=== PATIENT | female | born 1985 | race Caucasian/White ===

== ENCOUNTER 2019-02-26 18:20 | Observation (INO) | payer OTHER ==
[~2019-02-26] VITALS: Ht 170.2 cm; Wt 99.3 kg
[2019-02-26] MEDS ORDERED: PREN1TAB26 PO (18:51)
[2019-02-26 18:53] VITALS: BP 107/62
== END 2019-02-26 19:35 | disposition home or self-care (01) ==
LOC: 4S 18:20
PROVIDERS: ADMIT Obstetrics & Gynecology; ATTEND Obstetrics & Gynecology
DX: O24.419 Gestational diabetes mellitus in pregnancy, unspecified control (principal); Z3A.38 38 weeks gestation of pregnancy
CPT/HCPCS: 36415; 81002; 82947; 83036; G0378

== ENCOUNTER 2019-03-04 08:50 | Observation (INO) | payer OTHER ==
[~2019-03-04] VITALS: Ht 170 cm; Wt 99.3 kg
[~2019-03-04 08:50] MED LIST: PREN1TAB26 PO
[2019-03-04 09:37] VITALS: BP 101/61
[2019-03-10] MEDS ORDERED: IBUP-2070 PO (08:49)
[2019-03-10] MEDS ORDERED: DSS100 PO (08:50)
[2019-03-10] MEDS ORDERED: ACET-2247 PO (08:52)
[2019-03-10] MEDS ORDERED: PERCT PO (08:53)
== END 2019-03-04 10:20 | disposition home or self-care (01) ==
LOC: 4S 08:50
PROVIDERS: ADMIT Obstetrics & Gynecology; ATTEND Obstetrics & Gynecology
DX: O24.419 Gestational diabetes mellitus in pregnancy, unspecified control (principal); Z3A.39 39 weeks gestation of pregnancy
CPT/HCPCS: 81002; G0378

== ENCOUNTER 2020-08-07 18:32 | Observation (INO) | payer OTHER ==
[~2020-08-07 18:32] MED LIST changes: +ACET-2865 PO; +DSS100 PO; +IBUP-2070 PO; +PERCT PO
[2020-08-07 19:48] VITALS: BP 106/57
[2020-08-07 23:40] LABS: COVID AG,FIA SOURCE NASOPHARYNGEAL
[2020-08-17] MEDS ORDERED: PREN-217 PO (09:11)
== END 2020-08-08 07:15 | disposition home or self-care (01) ==
LOC: 4S 19:16
PROVIDERS: ADMIT Obstetrics & Gynecology; ATTEND Obstetrics & Gynecology
DX: O09.523 Supervision of elderly multigravida, third trimester (principal); Z20.822 Contact with and (suspected) exposure to COVID-19; Z3A.37 37 weeks gestation of pregnancy
CPT/HCPCS: 59025; 76811; 83036; 87426; 99219

== ENCOUNTER 2020-08-16 11:05 | Observation (INO) | payer OTHER ==
[~2020-08-16 11:05] MED LIST changes: -ACET-2865 PO; -DSS100 PO; -IBUP-2070 PO; -PERCT PO
[2020-08-16 12:32] LABS: COVID AG,FIA SOURCE NASOPHARYNGEAL
[2020-08-17] MEDS ORDERED: PREN-217 PO (09:11)
== END 2020-08-16 11:10 | disposition home or self-care (01) ==
LOC: 4S 11:05
PROVIDERS: ADMIT Obstetrics & Gynecology; ATTEND Obstetrics & Gynecology
DX: Z34.93 Encounter for supervision of normal pregnancy, unspecified, third trimester (principal); Z20.822 Contact with and (suspected) exposure to COVID-19
CPT/HCPCS: 87426; 99219

== ENCOUNTER 2020-08-17 09:11 | Inpatient (IN) | payer OTHER ==
[~2020-08-17] VITALS: Ht 170.2 cm; Wt 94.3 kg
[~2020-08-17 09:11] MED LIST changes: +PREN-217 PO
[2020-08-17] MEDS ORDERED: CITRIC ACID/SODIUM CITRATE 30 ML SOLUTION UDCUP PO ONE (09:15)
[2020-08-17] MEDS ORDERED: METOCLOPRAMIDE HCL 5 MG/ML 2 ML VIAL IVP ONE (09:15)
[2020-08-17] MEDS ORDERED: RINGERS SOLUTION,LACTATED 1,000 ML IV ONE ×2 (09:15→10:39)
[2020-08-17] MEDS ORDERED: METHYLERGONOVINE MALEATE 0.2 MG/ML VIAL IM ONE (09:15)
[2020-08-17 09:20] VITALS: BP 103/70
[2020-08-17] MEDS ORDERED: BUPIVACAINE HCL/DEX-WATER/PF 0.75% 2 ML AMP ITH ONE (10:39)
[2020-08-17] MEDS ORDERED: SODIUM CHLORIDE 0.9% 1,000 ML ONE (10:39)
[2020-08-17 11:11] LABS: BASOPHILS % (AUTO) 0.3 % (0.0-2.0); EOSINOPHILS % (AUTO) 1.5 % (1.0-6.0); HEMATOCRIT 33.2 % (36-46); HEMOGLOBIN 11.1 g/dL (12.0-16.0); LYMPHOCYTES % (AUTO) 22.9 % (22.0-44.0); MEAN CORPUSCULAR HEMOGLOBIN 29.2 pg (26.0-34.0); MEAN CORPUSCULAR HGB CONC 33.3 G/dL (31.0-37.0); MEAN CORPUSCULAR VOLUME 88 fL (80-100); MONOCYTES # (AUTO) 0.8 K/uL (0.1-1.0); MONOCYTES % (AUTO) 8.6 % (2.0-9.0); NEUTROPHILS # (AUTO) 5.8 K/uL (1.8-7.7); NEUTROPHILS % (AUTO) 66.7 % (40.0-70.0); PLATELET COUNT (AUTO) 293 K/uL (150-450); RED BLOOD CELL COUNT(AUTO) 3.79 MIL/uL (4.00-5.20); RED CELL DISTRIBUTION WIDTH 14.9 % (11.5-14.5)
[2020-08-17] MEDS ORDERED: GUM MASTIC/STORAX/MSAL/ALCOHOL LIQUID 0.67 ML VIAL TP ONE (11:38)
[2020-08-17] MEDS ORDERED: FentaNYL CITRATE PF 100 MCG/2 ML VIAL IVP PRN ×2 (12:15→13:30)
[2020-08-17] MEDS ORDERED: DiphenhydrAMINE HCL 50 MG/ML VIAL IVP PRN (12:15)
[2020-08-17] MEDS ORDERED: NALBUPHINE HCL 10 MG/ML VIAL IVP PRN ×2 (12:15→13:30)
[2020-08-17] MEDS ORDERED: MEPERIDINE-PF 25 MG/ML VIAL IVP PRN (12:15)
[2020-08-17] MEDS ORDERED: HYDROmorphone 2 MG/ML VIAL IVP PRN (12:15)
[2020-08-17] MEDS ORDERED: OxyCODONE HCL/ACETAMINOPHEN 5-325 MG TABLET PO PRN (12:45)
[2020-08-17] MEDS ORDERED: OXYTOCIN 30 UNITS/LACT RINGERS 500 ML IV ONE (12:45)
[2020-08-17] MEDS ORDERED: LANOLIN 7 GM OINTMENT TP PRN (12:45)
[2020-08-17] MEDS ORDERED: KETOROLAC TROMETHAMINE 30 MG/ML VIAL IVP SCH (13:30)
[2020-08-17] MEDS ORDERED: NALOXONE HCL 0.4 MG/ML VIAL IVP PRN (13:30)
[2020-08-17] MEDS ORDERED: ONDANSETRON HCL 4 MG/2 ML VIAL IVP PRN (13:30)
[2020-08-17] MEDS ORDERED: MORPHINE SULFATE 10 MG/ML SYRINGE IVP PRN (13:30)
[2020-08-17] MEDS: RINGERS SOLUTION,LACTATED 1,000 ML IV SCH ×2 (15:31→23:27)
[2020-08-17] MEDS: ACETAMINOPHEN 1000 MG/ISO-OSM 100 ML IV SCH ×2 (15:34→22:06)
[2020-08-17] MEDS ORDERED: OXYGEN THERAPY IH SCH ×3 (20:00)
[2020-08-18] MEDS ORDERED: OXYTOCIN 10 UNITS/ML VIAL IM ONE (06:22)
[2020-08-18] MEDS ORDERED: EPHEDrine SULFATE 50 MG/ML VIAL IM ONE (06:22)
[2020-08-18] MEDS ORDERED: ONDANSETRON HCL 4 MG/2 ML VIAL IVP ONE (06:22)
[2020-08-18] MEDS ORDERED: 0.9% SODIUM CHLORIDE 10 ML VIAL IVP ONE (06:22)
[2020-08-18 07:14] LABS: BASOPHILS % (AUTO) 0.1 % (0.0-2.0); EOSINOPHILS % (AUTO) 0.7 % (1.0-6.0); HEMATOCRIT 33.2 % (36-46); HEMOGLOBIN 10.9 g/dL (12.0-16.0); LYMPHOCYTES # (AUTO) 1.7 K/uL (1.0-4.8); LYMPHOCYTES % (AUTO) 14.2 % (22.0-44.0); MEAN CORPUSCULAR HEMOGLOBIN 29.3 pg (26.0-34.0); MEAN CORPUSCULAR HGB CONC 32.9 G/dL (31.0-37.0); MEAN CORPUSCULAR VOLUME 89 fL (80-100); MONOCYTES # (AUTO) 1.2 K/uL (0.1-1.0); MONOCYTES % (AUTO) 9.4 % (2.0-9.0); NEUTROPHILS # (AUTO) 9.3 K/uL (1.8-7.7); NEUTROPHILS % (AUTO) 75.6 % (40.0-70.0); PLATELET COUNT (AUTO)-OB 292 K/uL (150-450); RED BLOOD CELL COUNT(AUTO) 3.73 MIL/uL (4.00-5.20); RED CELL DISTRIBUTION WIDTH 15.1 % (11.5-14.5)
[2020-08-18] MEDS: MAGNESIUM HYDROXIDE SUSPENSION 30 ML UDCUP PO SCH ×2 (08:43→21:18)
[2020-08-18] MEDS: IBUPROFEN 800 MG TABLET PO PRN ×2 (12:59→18:46)
[2020-08-18] MEDS: OxyCODONE HCL/ACETAMINOPHEN 5-325 MG TABLET PO PRN ×2 (15:05→18:46)
[2020-08-19] MEDS: IBUPROFEN 800 MG TABLET PO PRN (06:06)
[2020-08-19] MEDS ORDERED: FentaNYL CITRATE PF 100 MCG/2 ML VIAL IVP ONE (06:32)
[2020-08-19] MEDS ORDERED: MORPHINE SULFATE 4 MG/ML SYRINGE IVP ONE (06:32)
[2020-08-19] MEDS ORDERED: MORPHINE SULFATE/PF 0.5 MG/ML 10 ML AMP IVP ONE ×2 (06:40→12:14)
[2020-08-19] MEDS: MAGNESIUM HYDROXIDE SUSPENSION 30 ML UDCUP PO SCH (08:32)
[2020-08-19] MEDS ORDERED: OXYC5 PO (08:44)
[2020-08-19] MEDS ORDERED: IBUP-2070 PO (08:49)
[2020-08-19] MEDS ORDERED: FERR-89 PO (08:50)
== END 2020-08-19 12:15 | disposition home or self-care (01) | DRG 785 ==
LOC: 4S 09:11 → OBSVTOIN 09:11 → PREOBSVTOIN 09-06 09:02
PROVIDERS: ADMIT Obstetrics & Gynecology; ATTEND Obstetrics & Gynecology
PROC: 10D00Z1 Extraction of Products of Conception, Low, Open Approach (ICD-10-PCS; principal; 2020-08-17)
PROC: 0UB70ZZ Excision of Bilateral Fallopian Tubes, Open Approach (ICD-10-PCS; 2020-08-17)
DX: O34.211 Maternal care for low transverse scar from previous cesarean delivery (principal); O24.429 Gestational diabetes mellitus in childbirth, unspecified control; O69.81X0 Labor and delivery complicated by cord around neck, without compression, not applicable or unspecified; Z37.0 Single live birth; Z30.2 Encounter for sterilization; Z3A.39 39 weeks gestation of pregnancy
CPT/HCPCS: 86850; 86900; 86901; 86923; 87081; 88302; J0131; J0690; J2270; J2274; J2405; J2590; J2765; J3010; J3490; J7030; J7120